=== PATIENT | female | born 1950 | race Caucasian/White ===

== ENCOUNTER 2020-06-17 09:06 | Outpatient (CLI) | payer MEDICARE, SELFPAY | END 2020-06-17 09:07 | disposition home or self-care (01) | LOC: ANHAUDIO 09:09 | PROVIDERS: PCP Internal Medicine; Visit Provider Otolaryngology | DX: H91.90 Unspecified hearing loss, unspecified ear (principal) | CPT/HCPCS: 92557; 92567 ==

== ENCOUNTER → 2021-10-03 10:54 | Outpatient (CLI) | payer MEDICARE, SELFPAY ==
--- NOTE | ~2021-10-03 | US_ITS ---
EXAMINATION:US venous doppler LE LT INDICATION:Acute DVT. TECHNIQUE: Multiple grayscale, color flow and Doppler images of the left lower extremity deep venous systems were obtained and reviewed. COMPARISON:No prior studies for comparison. FINDINGS: The common femoral, superficial femoral and popliteal veins demonstrate normal respiratory variation, augmentation and compressibility. Color flow is also seen within the posterior tibial, pe roneal, greater saphenous and profunda veins. IMPRESSION: 1: No lower extremity deep venous thrombosis. Reviewed, dictated and finalized at location A.
== END ==
PROVIDERS: PCP Internal Medicine; Visit Provider Orthopaedic Surgery
DX: I82.4Y2 Acute embolism and thrombosis of unspecified deep veins of left proximal lower extremity (principal)
CPT/HCPCS: 93971

== ENCOUNTER 2021-11-10 09:52 | Outpatient (CLI) | payer MEDICARE, SELFPAY ==
[2021-11-10 10:37] LABS: Basophils Absolute Auto 0.1 K/mm3 (0.0-0.1); Basophils Percent Auto 0.9 % (0.2-1.2); Eosinophils Absolute Auto 0.2 K/mm3 (0-0.3); Eosinophils Percent Auto 3.2 % (0-4.4); Hematocrit 46.8 % (37.0-47.0); Hemoglobin 14.8 g/dL (12.0-15.0); Immature Granulocyte Absolute 0.03 K/mm3 (0.00-0.031); Immature Granulocyte Percent A 0.5 % (0-0.5); Lymphocytes Absolute Auto 0.86 K/mm3 (0.9-3.2); Lymphocytes Percent Auto 13.6 % (18.3-44.2); Mean Corpuscular HGB Conc 31.6 g/dl (32-36); Mean Corpuscular Hemoglobin 29.5 pg (26-34); Mean Corpuscular Volume 93.2 fl (80-100); Mean Platelet Volume 10.7 fl (7.4-10.4); Monocytes Absolute Auto 0.5 K/mm3 (0.1-0.6); Monocytes Percent Auto 7.4 % (2.6-8.5); Neutrophils Absolute Auto 4.7 K/mm3 (1.3-6.7); Neutrophils Percent Auto 74.4 % (45.5-73.1); Platelet Count Result 220 k/mm3 (150-375); Red Blood Count 5.02 M/mm3 (4.2-5.4); Red Cell Distribution Width 13.8 % (11.5-14.5); White Blood Count 6.3 K/mm3 (4.5-10.0)
[2021-11-10 10:47] LABS: Alanine Aminotransferase 19 U/L (6-35); Albumin Level 4.4 g/dL (3.5-5.1); Alkaline Phosphatase 79 U/L (38-126); Anion Gap 8 mmol/L (8-16); Aspartate Amino Transferase 31 U/L (14-36); Bilirubin,Total 0.5 mg/dL (0.2-1.3); Blood Urea Nitrogen 12 mg/dL (7-17); CRP < 0.5 mg/dL (<1.0); Calcium 9.3 mg/dL (8.4-10.2); Carbon Dioxide 31 mmol/L (22-30); Chloride 103 mmol/L (98-107); Estimated Glomerular Filt Rate > 60; Glucose 92 mg/dL (65-110); Sodium 142 mmol/L (137-145)
[2021-11-10 10:50] LABS: Complement C3 127 mg/dL (88-165)
[2021-11-10 14:56] LABS: Erythrocyte Sedimentation Rate 10 mm/hr (0-20)
[2021-11-13 19:34] LABS: SM Antibody <1.0; SM/RNP Antibody <1.0; SS-A <1.0; SS-B <1.0
[2021-11-16 20:34] LABS: Lupus dRVVT 1:1 Mix Interpreta Not Indicated; Lupus dRVVT Screen 34 sec (<=45); PTT-LA Screen 33 sec (<=40)
== END 2021-11-10 09:53 | disposition home or self-care (01) ==
LOC: ANHLAB 09:59
PROVIDERS: PCP Internal Medicine; Visit Provider Internal Medicine
DX: R76.8 Other specified abnormal immunological findings in serum (principal); M35.00 Sjogren syndrome, unspecified; R89.9 Unspecified abnormal finding in specimens from other organs, systems and tissues
CPT/HCPCS: 36415; 80053; 85025; 85613; 85652; 85730; 86140; 86160; 86225; 86235

== ENCOUNTER 2021-11-16 12:19 | Outpatient (RCR) | payer MEDICARE, SELFPAY ==
[2021-11-18 20:31] LABS: Antithrombin III Activity 111 % normal (80-135)
[2021-11-19 10:12] LABS: Homocysteine 8.3 umol/L (<10.4)
[2021-11-21 21:09] LABS: Lupus dRVVT 1:1 Mix Interpreta Not Indicated; Lupus dRVVT Screen 33 sec (<=45); PTT-LA Screen 27 sec (<=40)
[2021-11-25 17:37] LABS: Factor V (Leiden) Mutation NEGATIVE
== END 2022-02-14 23:59 | disposition home or self-care (01) ==
LOC: ANHLAB 12:19
PROVIDERS: Visit Provider Internal Medicine Hematology & Oncology
DX: I82.4Y2 Acute embolism and thrombosis of unspecified deep veins of left proximal lower extremity (principal)
CPT/HCPCS: 36415; 81240; 81241; 83090; 85300; 85303; 85306; 85613; 85730; 86146

== ENCOUNTER 2022-05-30 11:37 | Outpatient (CLI) | payer MEDICARE, SELFPAY ==
[2022-05-30 11:56] LABS: Hemoglobin 14.6 g/dL (12.0-15.0); Mean Corpuscular HGB Conc 32.4 g/dl (32-36); Mean Corpuscular Hemoglobin 31.3 pg (26-34); Mean Corpuscular Volume 96.4 fl (80-100); Mean Platelet Volume 11.4 fl (7.4-10.4); Platelet Count Result 168 k/mm3 (150-375); Red Blood Count 4.67 M/mm3 (4.2-5.4); Red Cell Distribution Width 13.1 % (11.5-14.5); White Blood Count 6.3 K/mm3 (4.5-10.0)
[2022-05-30 12:02] LABS: Blood Urea Nitrogen 18 mg/dL (8-26); Carbon Dioxide 31 mmol/L (22-30); Chloride 102 mmol/L (98-109); Estimated Glomerular Filt Rate > 60; Glucose 89 mg/dL (70-105); Ionized Calcium (POC) 1.27 mmol/L (1.11-1.31); Potassium 3.9 mmol/L (3.5-4.9); Sodium 144 mmol/L (138-146)
== END 2022-05-30 11:38 | disposition home or self-care (01) ==
LOC: ANHLAB 11:40
PROVIDERS: PCP Internal Medicine; Visit Provider Internal Medicine Hematology & Oncology
DX: I82.4Y2 Acute embolism and thrombosis of unspecified deep veins of left proximal lower extremity (principal)
CPT/HCPCS: 36415; 80047; 85027

== ENCOUNTER 2022-09-04 00:52 | Day surgery (SDC) | payer MEDICARE, SELFPAY ==
[2022-08-24 14:02] VITALS: BMI 31.1
--- NOTE | 2022-09-01 15:31 | PM.HPGS ---
History of Present Illness History of Present Illness Consent: Risks, benefits, and alternatives have been discussed and questions answered. Patient agrees to proceed with procedure. Chief complaint: hx colon polyps Narrative: Bhavya Phelan is a 72 year old female Referred for colon cancer screening. Five years ago she had removal of 2 polyps. Review of Systems Review of Systems: All systems reviewed & are unremarkable except as noted in HPI and below PMFSH Past Medical History Medical History RICKI positive Generalized osteoarthritis of multiple sites Sicca syndrome Surgical History Surgical History History of knee replacement History of tympanoplasty Family History Family History Sibling Asthma Hypertension Cerebrovascular accident Social History Social History Smoking status: Never smoker Alcohol intake: never Substance use: never Living arrangements: with family Spiritual care concerns: No Meds Home Medications and Allergies Home Medications Medication Instructions Recorded Confirmed Type acetaminophen 325 mg capsule 325 mg PO Q6H PRN Pain, Mild 06/01/20 09/04/22 History (Tylenol) amlodipine 5 mg tablet 5 mg PO DAILY 06/01/20 09/04/22 History atenolol 25 mg tablet 25 mg PO DAILY 06/01/20 09/04/22 History atorvastatin 10 mg tablet 10 mg PO DAILY 06/01/20 09/04/22 History calcium carbonate 600 mg calcium 600 mg PO DAILY 06/01/20 09/04/22 History (1,500 mg) tablet (Calcium) dorzolamide-timolol (PF) 2 %-0.5 % 1 drp EACH EYE BID 06/01/20 09/04/22 History eye drops in a dropperette bumetanide 1 mg tablet 1 mg PO DAILY 08/24/22 09/04/22 History netarsudil 0.02 %-latanoprost 1 drp ophthalmic (eye) DAILY 08/24/22 09/04/22 History 0.005 % eye drops (Rocklatan) Allergies Allergy/AdvReac Type Severity Reaction Status Date / Time brimonidine Allergy Unknown Other Verified 06/19/23 07:37 levofloxacin Allergy Unknown Itching Verified 09/04/22 07:37 Penicillins Allergy Unknown Other Verified 09/04/22 07:37 Exam Const: General: alert Orientation/consciousness: patient oriented x3 Resp: Auscultation: clear to auscultation bilaterally Cardio: Rhythm: regular rhythm GI: GI Palp: Yes Soft to palpation and No Tenderness to palpation present (GI) Neuro: General: patient oriented x3 Assessment and Plan Assessment and plan (1) Colon cancer screening: Code(s): Z12.11 - Encounter for screening for malignant neoplasm of colon Status: Acute Assessment and Plan: Colonoscopy with possible biopsy or polypectomy or cautery or injection of substances.
[2022-09-04 07:39] VITALS: BP 155/78; PULSE 71; RESP 98; TEMP 36.4; O2SAT 98
[2022-09-04] MEDS: LACTATED RINGERS 1,000 ML 150 ML IV CONT (07:42)
--- NOTE | 2022-09-04 08:36 | WPDANESEPPF ---
Anes - Initial Pre Proc Eval Procedure: Operation Date: 09/04/22 09:00 Proposed Procedures p Colonoscopy - Kike Ferreira MD Date/Time: 09/04/22 08:36 Surgeon: Kike Ferreira MD Pre Op Diagnosis: hx colon polyps Patient Data Age: 72 Gender: F Height: 1.65 m Weight: 85.6 kg Last Vital Signs Temp 97.5 F L 09/04/22 07:39 Pulse 71 09/04/22 07:39 Resp 98 H 09/04/22 07:39 BP 155/78 H 09/04/22 07:39 Pulse Ox 98 09/04/22 07:39 O2 Del Method Room Air 09/04/22 07:39 Allergies Allergy/AdvReac Type Severity Reaction Status Date / Time brimonidine Allergy Unknown Other Verified 09/04/22 07:37 levofloxacin Allergy Unknown Itching Verified 09/04/22 07:37 Penicillins Allergy Unknown Other Verified 09/04/22 07:37 Home Medications Medication Instructions Recorded Confirmed Type acetaminophen 325 mg capsule 325 mg PO Q6H PRN Pain, Mild 06/01/20 09/04/22 History (Tylenol) amlodipine 5 mg tablet 5 mg PO DAILY 06/01/20 09/04/22 History atenolol 25 mg tablet 25 mg PO DAILY 06/01/20 09/04/22 History atorvastatin 10 mg tablet 10 mg PO DAILY 06/01/20 09/04/22 History calcium carbonate 600 mg calcium 600 mg PO DAILY 06/01/20 09/04/22 History (1,500 mg) tablet (Calcium) dorzolamide-timolol (PF) 2 %-0.5 % 1 drp EACH EYE BID 06/01/20 09/04/22 History eye drops in a dropperette bumetanide 1 mg tablet 1 mg PO DAILY 08/24/22 09/04/22 History netarsudil 0.02 %-latanoprost 1 drp ophthalmic (eye) DAILY 08/24/22 09/04/22 History 0.005 % eye drops (Rocklatan) Patient hx anesthesia problems: none Family hx anesthesia problems: none Results Review: All pre-operative results and documents have been reviewed as part of the pre-operative evaluation. [facility] Past Medical History Medical History RICKI positive Generalized osteoarthritis of multiple sites Sicca syndrome Surgical History Surgical History History of knee replacement History of tympanoplasty Family History Family History Sibling Asthma Hypertension Cerebrovascular accident Social History Social History Smoking status: Never smoker Alcohol intake: never Substance use: never Living arrangements: with family Spiritual care concerns: No Anes - Eval Final PreProcedure Day of Procedure 09/04/22 08:36 Patient weight: normal Heart: regular rate and rhythm Lungs: clear to auscultation Neurological: alert and oriented Last oral intake: >/= 8 hours Emergent: no Anesthetic plan: proceed Results Review: All pre-operative results and documents have been reviewed as part of the pre-operative evaluation. Informed Consent: The patient's anesthetic plan and its attendant risks and benefits were discussed with the patient/family/POA. Questions were solicited and answers provided to the satisfaction of the patient/family/POA.
[2022-09-04 09:25] VITALS: BP 103/48; PULSE 51; RESP 17; O2SAT 98
[2022-09-04 09:35] VITALS: BP 104/52; PULSE 50; RESP 22; O2SAT 98
[2022-09-04 09:45] VITALS: BP 151/65; PULSE 56; RESP 21; O2SAT 100
== END 2022-09-04 09:56 | disposition home or self-care (01) ==
PROVIDERS: PCP Internal Medicine; Visit Provider Internal Medicine Gastroenterology
PROC: 0DJD8ZZ Inspection of Lower Intestinal Tract, Via Natural or Artificial Opening Endoscopic (ICD-10-PCS; CPT 45378; principal; 2022-09-04 09:00)
DX: Z12.11 Encounter for screening for malignant neoplasm of colon (principal); D12.8 Benign neoplasm of rectum; M35.00 Sjogren syndrome, unspecified
CPT/HCPCS: 45381; 45388; 88305; J2704; J7120

== ENCOUNTER 2024-02-18 00:18 | Day surgery (SDC) | payer MEDICARE, SELFPAY ==
[2024-01-30 09:22] VITALS: BMI 32.1
[2024-02-18 06:23] VITALS: BP 160/77; PULSE 69; RESP 16; TEMP 36.2; O2SAT 96; BMI 31.8
[2024-02-18] MEDS: LACTATED RINGERS 1,000 ML 150 ML IV CONT (06:36)
--- NOTE | 2024-02-18 07:07 | WPDANESEPPF ---
Anes - Initial Pre Proc Eval Procedure: Operation Date: 02/18/24 07:30 Proposed Procedures p Colonoscopy - Chris Zuniga MD Date/Time: 02/18/24 07:07 Surgeon: Chris Zuniga MD Pre Op Diagnosis: Personal Hx. colon polyps Patient Data Age: 73 Gender: F Height: 1.65 m Weight: 86.8 kg Last Vital Signs Temp 36.2 C L 02/18/24 06:23 Pulse 69 02/18/24 06:23 Resp 16 02/18/24 06:23 BP 160/77 H 02/18/24 06:23 Pulse Ox 96 02/18/24 06:23 O2 Del Method Room Air 02/18/24 06:23 Allergies Allergy/AdvReac Type Severity Reaction Status Date / Time brimonidine Allergy Unknown Other Verified 02/18/24 06:21 levofloxacin Allergy Unknown Itching Verified 02/18/24 06:21 Penicillins Allergy Unknown Other Verified 02/18/24 06:21 Home Medications Medication Instructions Recorded Confirmed Type amlodipine 5 mg tablet 5 mg PO DAILY 06/01/20 02/18/24 History atenolol 25 mg tablet 25 mg PO DAILY 06/01/20 02/18/24 History atorvastatin 10 mg tablet 10 mg PO DAILY 06/01/20 02/18/24 History calcium carbonate (Calcium 600) 600 mg PO DAILY 06/01/20 02/18/24 History dorzolamide-timolol (PF) 2 %-0.5 % 1 drp EACH EYE BID 06/01/20 02/18/24 History eye drops in a dropperette bumetanide 1 mg tablet 1 mg PO DAILY 08/24/22 02/18/24 History netarsudil 0.02 %-latanoprost 1 drp ophthalmic (eye) DAILY 08/24/22 02/18/24 History 0.005 % eye drops (Rocklatan) Patient hx anesthesia problems: none Family hx anesthesia problems: none Results Review: All pre-operative results and documents have been reviewed as part of the pre-operative evaluation. [facility] Past Medical History Medical History RICKI positive Generalized osteoarthritis of multiple sites Sicca syndrome Surgical History Surgical History History of knee replacement History of tympanoplasty Family History Family History Sibling Asthma Hypertension Cerebrovascular accident Social History Social History Smoking status: Never smoker Alcohol intake: never Substance use: never Substance use type: does not use Living arrangements: with family Spiritual care concerns: No Anes - Eval Final PreProcedure Day of Procedure 02/18/24 07:07 Patient weight: obese Heart: regular rate and rhythm Lungs: clear to auscultation Airway: Mallampati scale class II Neurological: alert and oriented Last oral intake: >/= 8 hours ASA classification: III Emergent: no Anesthetic plan: proceed Anesthesia type and monitoring: general GIVS and standard monitoring Results Review: All pre-operative results and documents have been reviewed as part of the pre-operative evaluation. Informed Consent: The patient's anesthetic plan and its attendant risks and benefits were discussed with the patient/family/POA. Questions were solicited and answers provided to the satisfaction of the patient/family/POA.
--- NOTE | 2024-02-18 07:36 | PM.HPGS ---
History of Present Illness History of Present Illness Consent: Risks, benefits, and alternatives have been discussed and questions answered. Patient agrees to proceed with procedure. Chief complaint: Personal Hx. colon polyps Narrative: Bhavya Phelan is a 73 year old female here with colon polyp 1 year ago Review of Systems Review of Systems: All systems reviewed & are unremarkable except as noted in HPI and below PMFSH Past Medical History Medical History (Updated 02/18/24 @ 07:37 by Chris Zuniga MD) Adenomatous colon polyp RICKI positive Generalized osteoarthritis of multiple sites Sicca syndrome Surgical History Surgical History History of knee replacement History of tympanoplasty Family History Family History Sibling Asthma Hypertension Cerebrovascular accident Social History Social History Smoking status: Never smoker Alcohol intake: never Substance use: never Substance use type: does not use Living arrangements: with family Spiritual care concerns: No Meds Home Medications and Allergies Home Medications Medication Instructions Recorded Confirmed Type amlodipine 5 mg tablet 5 mg PO DAILY 06/01/20 02/18/24 History atenolol 25 mg tablet 25 mg PO DAILY 06/01/20 02/18/24 History atorvastatin 10 mg tablet 10 mg PO DAILY 06/01/20 02/18/24 History calcium carbonate (Calcium 600) 600 mg PO DAILY 06/01/20 02/18/24 History dorzolamide-timolol (PF) 2 %-0.5 % 1 drp EACH EYE BID 06/01/20 02/18/24 History eye drops in a dropperette bumetanide 1 mg tablet 1 mg PO DAILY 08/24/22 02/18/24 History netarsudil 0.02 %-latanoprost 1 drp ophthalmic (eye) DAILY 08/24/22 02/18/24 History 0.005 % eye drops (Rocklatan) Allergies Allergy/AdvReac Type Severity Reaction Status Date / Time brimonidine Allergy Unknown Other Verified 02/18/24 06:21 levofloxacin Allergy Unknown Itching Verified 02/18/24 06:21 Penicillins Allergy Unknown Other Verified 02/18/24 06:21 Vital Signs Vital Signs - 24 hr 02/18/24 06:23 Temperature 97.2 F L Pulse Rate 69 Respiratory Rate 16 Blood Pressure 160/77 H Pulse Oximetry 96 Oxygen Delivery Room Air Exam Const: General: comfortable and no acute distress HENMT: Face/Nose/Sinus: Normal nares present Eyes: General: appearance normal, both eyes and all related structures Neck: Neck: no JVD Resp: Auscultation: clear to auscultation bilaterally Cardio: Rate: regular rate Rhythm: regular rhythm GI: Inspection: non-distended GI Palp: Yes Soft to palpation Skin: General skin exam: normal color Neuro: General: gait normal Speech: normal speech Extrem: General: normal to inspection Psych: Mental Status: mental status grossly normal Assessment and Plan Assessment and plan (1) Adenomatous colon polyp: Code(s): D12.6 - Benign neoplasm of colon, unspecified Status: Acute Assessment and Plan: colonoscopy
[2024-02-18 07:52] VITALS: BP 105/61; PULSE 56; RESP 14; O2SAT 99
[2024-02-18 08:02] VITALS: BP 131/66; PULSE 57; RESP 15; O2SAT 99
[2024-02-18 08:12] VITALS: BP 142/70; PULSE 57; RESP 20; O2SAT 100
== END 2024-02-18 08:22 | disposition home or self-care (01) ==
PROVIDERS: PCP Internal Medicine; Visit Provider Internal Medicine Gastroenterology
PROC: 0DJD8ZZ Inspection of Lower Intestinal Tract, Via Natural or Artificial Opening Endoscopic (ICD-10-PCS; CPT 45378; principal; 2024-02-18 07:30)
DX: Z09 Encounter for follow-up examination after completed treatment for conditions other than malignant neoplasm (principal); K64.8 Other hemorrhoids; K64.4 Residual hemorrhoidal skin tags; Z86.0100 Personal history of colon polyps, unspecified; E66.9 Obesity, unspecified; Z68.31 Body mass index [BMI] 31.0-31.9, adult
CPT/HCPCS: 45378; J2003; J2704; J7120